=== PATIENT | female | born 1990 | race Caucasian/White ===

== ENCOUNTER 2018-10-19 13:46 | Outpatient (CLI) | payer MEDICAID | END 2018-10-19 16:30 | disposition home or self-care (01) | LOC: OBT 13:46 → L-D 13:46 → OBT 16:30 | DX: O47.1 False labor at or after 37 completed weeks of gestation (principal); Z3A.38 38 weeks gestation of pregnancy | CPT/HCPCS: 76818; 93970 ==

== ENCOUNTER 2018-10-24 16:21 | Inpatient (IN) | payer MEDICAID ==
[2018-10-24] MEDS ORDERED: METHYLERGONOVINE 0.2 MG INJ IM (20:30)
[2018-10-24] MEDS ORDERED: OXYCODONE/ASPIRIN (4.88/325) TAB PO (20:30)
[2018-10-24] MEDS ORDERED: CARBOPROST 250 MCG INJ IM (20:30)
[2018-10-24] MEDS ORDERED: MISOPROSTOL 200 MCG TAB PR (20:30)
[2018-10-24] MEDS ORDERED: BUTORPHANOL 2 MG INJ IV (20:30)
[2018-10-24] MEDS ORDERED: LIDOCAINE 1% (MPF) 30 ML INJ INJ (20:30)
[2018-10-24] MEDS ORDERED: OXYTOCIN 30 UNITS/LR 500 ML IV ×2 (20:30)
[2018-10-24] MEDS: LACTATED RINGER'S 1,000 ML IV (20:54)
[2018-10-24 20:56] LABS: ADD MAN DIFF? NO
[2018-10-24 20:59] LABS: BASOPHILS % 0.1 % (0.0-2.0); EOSINOPHILS % 0.4 % (0.0-7.0); HEMATOCRIT 36.1 % (37.0-47.0); LYMPHOCYTES # 1.4 10^3/ul (0.8-2.9); LYMPHOCYTES % 19.1 % (15.0-51.0); MEAN CORPUSCULAR HEMOGLOBIN 23.1 pg (29.0-33.0); MEAN CORPUSCULAR HGB CONC 30.5 g/dl (32.0-37.0); MEAN CORPUSCULAR VOLUME 75.8 fl (82.0-101.0); MEAN PLATELET VOLUME 11.6 fl (7.4-10.4); MONOCYTE # 0.4 10^3/ul (0.3-0.9); MONOCYTES % 5.4 % (0.0-11.0); NEUTROPHIL # 5.4 10^3/ul (1.6-7.5); NEUTROPHILS % 74.3 % (39.0-77.0); NUCLEATED RED BLOOD CELLS% 0.4 /100WBC (0.0-0.0); PLATELET COUNT 176 10^3/UL (140-415); RED BLOOD COUNT 4.76 10^6/ul (4.20-5.40)
[2018-10-24 20:59] LABS: WHITE BLOOD COUNT 7.2 10^3/ul (4.8-10.8)
[2018-10-24 21:18] LABS: INR 0.91; PROTIME 12.4 Sec (11.9-14.9)
[2018-10-24 21:19] LABS: PARTIAL THROMBOPLASTIN TIME 26.4 Sec (23.0-35.0)
[2018-10-24] MEDS: ACETAMINOPHEN 500 MG TAB PO (22:21)
[2018-10-25] MEDS: OXYTOCIN 30 UNITS/LR 500 ML IV ×2 (01:10→22:15)
[2018-10-25] MEDS: LACTATED RINGER'S 1,000 ML IV ×2 (05:06→22:21)
[2018-10-25] MEDS: BUTORPHANOL 2 MG INJ IV ×2 (08:00→20:38)
[2018-10-25] MEDS ORDERED: FENTAnyl 2MCG/ML-ROPIV 0.2% 100 ML (14:10)
[2018-10-25] MEDS ORDERED: NALOXONE (0.4 MG/ML) INJ IV (14:30)
[2018-10-25] MEDS ORDERED: FENTAnyl 2MCG/ML-ROPIV 0.2% 100 ML BAG EPI (14:30)
[2018-10-25 16:34] LABS: RAPID PLASMA REAGIN NONREACTIVE (NR)
[2018-10-25] MEDS ORDERED: ACETAMINOPHEN 500 MG TAB (18:02)
[2018-10-25] MEDS: IBUPROFEN 600 MG TAB PO ×2 (19:44→23:35)
[2018-10-25] MEDS: ACETAMINOPHEN 500 MG TAB PO (20:36)
[2018-10-25] MEDS ORDERED: IBUPROFEN 600 MG TAB PO (21:00)
[2018-10-26] MEDS: LACTATED RINGER'S 1,000 ML IV ×2 (01:30→04:02)
[2018-10-26] MEDS: IBUPROFEN 600 MG TAB PO ×3 (05:44→17:18)
[2018-10-26] MEDS: SENNA/DOCUSATE NA (8.6MG/50MG) TAB PO (09:55)
[2018-10-26] MEDS ORDERED: WITCH HAZEL/GLYCERIN PAD PR (10:00)
[2018-10-26] MEDS ORDERED: ZOLPIDEM 5 MG TAB PO (10:00)
[2018-10-26] MEDS ORDERED: MISOPROSTOL 200 MCG TAB PR (10:00)
[2018-10-26] MEDS ORDERED: LANOLIN HPA 1 PKT TOP (10:00)
[2018-10-26] MEDS ORDERED: METHYLERGONOVINE 0.2 MG INJ IM (10:00)
[2018-10-26] MEDS ORDERED: OXYTOCIN 30 UNITS/LR 500 ML IV (10:00)
[2018-10-26] MEDS ORDERED: ACETAMINOPHEN 325 MG TAB PO (10:00)
[2018-10-26] MEDS ORDERED: DIBUCAINE 1% 30 GM OINT TOP (10:00)
[2018-10-26] MEDS ORDERED: ONDANSETRON 4 MG INJ IV (10:00)
[2018-10-26] MEDS ORDERED: DIPHENHYDRAMINE 50 MG INJ IV (10:00)
[2018-10-26] MEDS ORDERED: CARBOPROST 250 MCG INJ IM (10:00)
[2018-10-26] MEDS ORDERED: BENZOCAINE 20% 56 ML SPRAY TOP (10:00)
[2018-10-26 12:27] LABS: ADD MAN DIFF? NO
[2018-10-26 12:30] LABS: WHITE BLOOD COUNT 7.7 10^3/ul (4.8-10.8)
[2018-10-26 12:30] LABS: BASOPHILS % 0.4 % (0.0-2.0); EOSINOPHILS # 0.1 10^3/ul (0.0-0.5); EOSINOPHILS % 0.7 % (0.0-7.0); HEMOGLOBIN 10.3 g/dl (12.0-16.0); LYMPHOCYTES # 1.5 10^3/ul (0.8-2.9); LYMPHOCYTES % 19.9 % (15.0-51.0); MEAN CORPUSCULAR HEMOGLOBIN 23.5 pg (29.0-33.0); MEAN CORPUSCULAR HGB CONC 30.3 g/dl (32.0-37.0); MEAN CORPUSCULAR VOLUME 77.4 fl (82.0-101.0); MEAN PLATELET VOLUME 11.7 fl (7.4-10.4); MONOCYTE # 0.5 10^3/ul (0.3-0.9); MONOCYTES % 6.3 % (0.0-11.0); NEUTROPHIL # 5.5 10^3/ul (1.6-7.5); PLATELET COUNT 146 10^3/UL (140-415); RED BLOOD COUNT 4.39 10^6/ul (4.20-5.40); RED CELL DISTRIBUTION WIDTH 16.1 % (11.5-14.5)
[2018-10-26] MEDS: LACTATED RINGER'S 1,000 ML IV* (19:55)
[2018-10-26] MEDS: DEXTROSE 5%-LR 1,000 ML IV (19:55)
[2018-10-26] MEDS: OXYCODONE/ASPIRIN (4.88/325) TAB PO (21:40)
[2018-10-27] MEDS: IBUPROFEN 600 MG TAB PO ×3 (00:42→11:44)
[2018-10-27] MEDS: MEDROXYPROGESTERONE 150 MG INJ SYG IM (08:55)
[2018-10-27 08:59] LABS: ADD MAN DIFF? NO
[2018-10-27] MEDS: SENNA/DOCUSATE NA (8.6MG/50MG) TAB PO (08:59)
[2018-10-27 09:08] LABS: WHITE BLOOD COUNT 7.9 10^3/ul (4.8-10.8)
[2018-10-27 09:08] LABS: BASOPHILS % 0.3 % (0.0-2.0); EOSINOPHILS # 0.1 10^3/ul (0.0-0.5); EOSINOPHILS % 1.4 % (0.0-7.0); HEMATOCRIT 30.8 % (37.0-47.0); LYMPHOCYTES # 2.5 10^3/ul (0.8-2.9); LYMPHOCYTES % 32.3 % (15.0-51.0); MEAN CORPUSCULAR HEMOGLOBIN 22.9 pg (29.0-33.0); MEAN CORPUSCULAR HGB CONC 29.2 g/dl (32.0-37.0); MEAN CORPUSCULAR VOLUME 78.4 fl (82.0-101.0); MEAN PLATELET VOLUME 12.3 fl (7.4-10.4); MONOCYTE # 0.5 10^3/ul (0.3-0.9); MONOCYTES % 6.4 % (0.0-11.0); NEUTROPHIL # 4.7 10^3/ul (1.6-7.5); PLATELET COUNT 147 10^3/UL (140-415); RED BLOOD COUNT 3.93 10^6/ul (4.20-5.40); RED CELL DISTRIBUTION WIDTH 15.9 % (11.5-14.5)
[2018-10-27] MEDS: DIPHTH/TET/ACEL PERTUSS (ADULT) 0.5 ML VIAL IM* (10:50)
[2018-10-28] MEDS ORDERED: MEASLES,MUMPS,RUBELLA VACCINE INJ SC* (09:00)
== END 2018-10-27 15:00 | disposition home or self-care (01) | DRG 807 ==
LOC: OBT 16:21 → L-D 16:23 → PP1 10-25 19:03 → L-D 16:35 → OBT 20:06 → L-D 20:00
PROVIDERS: Obstetrics & Gynecology
PROC: 10E0XZZ Delivery of Products of Conception, External Approach (ICD-10-PCS; principal; 2018-10-25)
DX: O36.63X0 Maternal care for excessive fetal growth, third trimester, not applicable or unspecified (principal); Z37.0 Single live birth; O90.81 Anemia of the puerperium; Z3A.39 39 weeks gestation of pregnancy
CPT/HCPCS: 62322; 76815; 76818; 85025; 85610; 85730; 86592; 86850; 86900; 86901